=== PATIENT | female | born 1975 | race Caucasian/White ===

== ENCOUNTER 2022-09-07 08:08 | Outpatient (CLI) | payer OTHER | END 2022-09-07 08:09 | disposition home or self-care (01) | LOC: NAV RAD 08:08 | PROVIDERS: ATTEND Family Medicine | DX: S62.605A Fracture of unspecified phalanx of left ring finger, initial encounter for closed fracture (principal); S62.603A Fracture of unspecified phalanx of left middle finger, initial encounter for closed fracture ==

== ENCOUNTER 2024-04-25 08:42 | Emergency (ER) | payer OTHER ==
[2024-04-25] MEDS ORDERED: Lidocaine 1% (PF) 30 ML VIAL ONE (08:53)
[2024-04-25] MEDS ORDERED: Boostrix 0.5 ML (Tdap) VIAL (>/=7 yrs of age) ONE (09:26)
[2024-04-25] MEDS ORDERED: Bacitracin 1 PK ONE (09:26)
== END 2024-04-25 10:06 | disposition home or self-care (01) ==
LOC: NAV ERS 08:42
DX: S91.115A Laceration without foreign body of left lesser toe(s) without damage to nail, initial encounter (principal); R03.0 Elevated blood-pressure reading, without diagnosis of hypertension; W29.1XXA Contact with electric knife, initial encounter
CPT/HCPCS: 12001; 90471; 90715; J2001